=== PATIENT | female | born 1955 | race Caucasian/White ===

== ENCOUNTER 2018-11-13 16:41 | Observation (INO) | payer MEDICAID ==
[~2018-11-13] VITALS: Ht 165.1 cm; Wt 78.0 kg
[~2018-11-13 16:41] MED LIST: ACET-2615 PO; GABA300C PO; LEVO175T7 PO; LISI40TA4 PO; OMEP40CA37 PO; SIMV40TA PO
[2018-11-13 17:16] LABS: BASOPHILS # (AUTO) 0.1 X10'3 (0-0.2); BASOPHILS % (AUTO) 0.5 % (0-1); EOSINOPHILS % (AUTO) 0.2 % (0-6); HEMATOCRIT 49.9 % (35.0-45.0); HEMOGLOBIN 16.4 g/dl (12.0-16.0); LYMPHOCYTES # (AUTO) 0.8 X10'3 (1.1-4.8); LYMPHOCYTES % (AUTO) 5.7 % (21-51); MEAN CORPUSCULAR HGB CONC 32.8 g/dL (33.0-36.5); MEAN CORPUSCULAR VOLUME 85.2 FL (78-98); MEAN PLATELET VOLUME 9.7 FL (7.4-10.4); MONOCYTES # (AUTO) 0.5 X10'3 (0-0.9); NEUTROPHILS # (AUTO) 12.1 X10'3 (1.8-7.7); NEUTROPHILS % (AUTO) 89.6 % (42-75); PLATELET COUNT 287 X10'3 (140-440); RED BLOOD COUNT 5.86 X10'6 (4.20-5.60); WHITE BLOOD COUNT 13.5 X10'3 (4.5-11.0)
[2018-11-13 17:44] LABS: ALANINE AMINOTRANSFERASE 22 U/L (12-78); ALBUMIN 3.7 G/DL (3.4-5.0); ALKALINE PHOSPHATASE 102 IU/L (46-116); ANION GAP 11 (8-16); ASPARTATE AMINO TRANSFERASE 17 U/L (10-37); BILIRUBIN,TOTAL 0.4 MG/DL (0.1-1.0); BLOOD UREA NITROGEN 19 MG/DL (7-18); BUN/CREATININE RATIO 19.6 (6.6-38.0); CALCIUM 9.2 MG/DL (8.5-10.1); CHLORIDE 102 MMOL/L (99-107); CREATININE 0.97 MG/DL (0.40-0.90); GLUCOSE 136 MG/DL (70-104); POTASSIUM 4.1 MMOL/L (3.5-5.1); SODIUM 139 MMOL/L (135-145); TOTAL CARBON DIOXIDE 26.4 MMOL/L (24-32); TOTAL PROTEIN 7.4 G/DL (6.4-8.2); eGFR 58 ML/MIN
[2018-11-13] MEDS ORDERED: ondansetron/PF 4mg/2ml inj IV ONE (18:10)
[2018-11-13] MEDS ORDERED: normal saline 1000ml 1,000 ML IV ONE (18:10)
--- NOTE | 2018-11-13 19:13 | NUR ---
Patient is resting comfortably on gurney, daughter at bedside. She is A&O x4, ZARAGOZA and is appropriate. I will continue to monitor.
--- NOTE | 2018-11-13 20:30 | NUR ---
Patient asked me to "unhook her from monitor" so she can go outside to smoke. I advised her that because she has an IV I cannot allow this. She said she will leave then, to which I advised against until all testing was back. I advised her I will let the MD know, her wishes.
[2018-11-13] MEDS ORDERED: nitroGLYCERIN 0.4mg SUBLingual tab SL PRN ×2 (20:35→21:45)
[2018-11-13] MEDS ORDERED: aspirin 81mg tab.chew PO ONE (20:35)
[2018-11-13] MEDS ORDERED: HYDR-4353 PO (20:38)
[2018-11-13] MEDS ORDERED: GABA-532 PO (20:38)
--- NOTE | 2018-11-13 20:44 | NUR ---
Dr. Encarnacion in with patient advised against AMA, he let her know the bottom of her heart is not getting enought Oxygen and it could be life threatening. She has decided to stay.
[2018-11-13] MEDS ORDERED: nicotine 21mg patch - 24 hr TD ONE (20:55)
[2018-11-13] MEDS ORDERED: HYDROcodone/acetaminophen 10/325mg tab PO ONE (20:55)
--- NOTE | 2018-11-13 20:55 | NUR ---
Per Dr. Alysha marquez to order Nicotine patch 21mg and [place] 10/325 2tabs po now.
--- NOTE | 2018-11-13 21:05 | NUR ---
Patient refused to be draw again for labs.
[2018-11-13] MEDS ORDERED: ondansetron/PF 4mg/2ml inj IV PRN (21:45)
[2018-11-13] MEDS ORDERED: magnesium hydroxide 30ml (MOM) UD suspension PO PRN (21:45)
[2018-11-13] MEDS ORDERED: acetaminophen 325mg tablet PO PRN (21:45)
[2018-11-13] MEDS ORDERED: morphine 2 MG/ML inj. syringe IV PRN (21:45)
[2018-11-13] MEDS ORDERED: morphine 4 MG/ML inj SYRINge IV PRN (21:45)
[2018-11-13] MEDS ORDERED: HYDROcodone/acetaminophen 5mg/325mg tablet PO PRN (21:45)
[2018-11-13] MEDS ORDERED: mag hydrox/Alum hydrox/simeth 30ml oral suspension PO PRN (21:45)
--- NOTE | 2018-11-13 22:47 | NUR ---
Patient is wanting to AMA, I will adivsed the MD.
--- NOTE | 2018-11-13 22:58 | NUR ---
Patient was conseled by Dr. Encarnacion about the consequences of leaving AMA and she is aware, but chooses to go. Patient signed an AMA form
[2018-11-13 23:00] VITALS: BP 109/75
[2018-11-14] MEDS ORDERED: levoTHYROXINE 175mcg tablet PO SCH (07:30)
[2018-11-14] MEDS ORDERED: lisinopril 20mg tablet PO SCH (08:00)
[2018-11-14] MEDS ORDERED: atorvastatin 20mg tablet PO SCH (08:00)
[2018-11-14] MEDS ORDERED: gabapentin 300mg capsule PO SCH (08:00)
[2018-11-14] MEDS ORDERED: aspirin 81mg tablet.DR PO SCH (08:00)
[2018-11-14] MEDS ORDERED: HYDROcodone/acetaminophen 10/325mg tab PO SCH (08:00)
[2018-11-14] MEDS ORDERED: pantoprazole 40mg Tablet.DR PO SCH (08:00)
== END 2018-11-13 23:00 | disposition left against medical advice (07) ==
LOC: ER 16:41 → ED HOLD 21:45 → EDBEDREQ 22:28
PROVIDERS: ADMIT Internal Medicine; ATTEND Internal Medicine
DX: R07.89 Other chest pain (principal); I10 Essential (primary) hypertension; E78.00 Pure hypercholesterolemia, unspecified; M54.9 Dorsalgia, unspecified; G89.29 Other chronic pain; H26.9 Unspecified cataract; F17.210 Nicotine dependence, cigarettes, uncomplicated
CPT/HCPCS: 36415; 71045; 80053; 83880; 84484; 85025; 93005; 96361; 96374; 99284; G0378; J2405

== ENCOUNTER 2022-11-10 00:07 | Emergency (ER) | payer MEDICARE, MEDICAID ==
[~2022-11-10] VITALS: Ht 165.1 cm; Wt 104.5 kg
[~2022-11-10 00:07] MED LIST changes: -ACET-2615 PO; +GABA-532 PO; -GABA300C PO; +HYDR-4353 PO; +LISI40TA13 PO; -LISI40TA4 PO; +OMEP40CA21 PO; -OMEP40CA37 PO
[2022-11-10 00:10] VITALS: BP 174/80
[2022-11-10] MEDS ORDERED: acetaminophen 325mg tablet PO ONE (00:25)
[2022-11-10] MEDS ORDERED: normal saline 1000ML IV soln IVB ONE (00:25)
[2022-11-10] MEDS ORDERED: diphenhydrAMINE 50 mg/ml inj IV ONE (00:25)
[2022-11-10] MEDS ORDERED: metoclopramide 5 mg/ml inj IV ONE (00:25)
== END 2022-11-10 02:13 | disposition home or self-care (01) ==
LOC: ER 00:08
DX: G43.909 Migraine, unspecified, not intractable, without status migrainosus (principal); E78.00 Pure hypercholesterolemia, unspecified; I10 Essential (primary) hypertension; J45.909 Unspecified asthma, uncomplicated; G89.29 Other chronic pain; Z90.89 Acquired absence of other organs; Z86.73 Personal history of transient ischemic attack (TIA), and cerebral infarction without residual deficits; Z88.5 Allergy status to narcotic agent; Z88.8 Allergy status to other drugs, medicaments and biological substances; Z79.899 Other long term (current) drug therapy
CPT/HCPCS: 70450; 96361; 96374; 96375; 99285; J1200; J2765; J7030